=== PATIENT | male | born 1955 | race Caucasian/White ===

== ENCOUNTER → 2019-04-22 10:16 | Outpatient (CLI) | payer MEDICAID ==
[2013-11-13 09:35] VITALS: BMI 30.6
[~2019-04-22 10:16] MED LIST: GLUCOPHAGE500 MG PO; GLUCOTROL ER2.5 MG PO; HYDROCODONE-APA1 TAB PO; NORCO 10/325 TA1 TA1 PO
== END | disposition home or self-care (01) ==
LOC: D.MRI 10:16
PROVIDERS: ATTEND Orthopaedic Surgery
DX: S83.231A Complex tear of medial meniscus, current injury, right knee, initial encounter (principal)

== ENCOUNTER 2019-09-18 06:32 | Day surgery (SDC) | payer MEDICAID ==
[2019-09-17 15:53] LABS: HEMATOCRIT 39.1 % (42.0-54.0); HEMOGLOBIN 13.4 g/dL (13.5-17.5); MCH 30.9 pg (26.0-34.0); MCHC 34.3 g/dL (31.0-37.0); MCV 90.3 fL (80.0-100.0); RBC 4.33 10x6/uL (4.20-6.10); RDW 12.7 % (11.5-14.5); WBC 10.1 10x3/uL (4.8-10.8)
[2019-09-17 16:03] LABS: ANION GAP 13.2 mmol/L (8-16); CALCIUM 9.7 mg/dL (8.5-10.1); CARBON DIOXIDE 29.7 mmol/L (21.0-32.0); CREATININE - SERUM 1.2 mg/dL (0.6-1.3); POTASSIUM - SERUM 4.9 mmol/L (3.5-5.1)
[~2019-09-18] VITALS: Ht 182.9 cm; Wt 99.8 kg
[~2019-09-18 06:32] MED LIST changes: +CRESTOR20 MG PO; +DICLOFENAC SODI50 MG PO; +LEVEMIR FL100 UNIT/1 SC; +LEVEMIR IN100 UNITS/ SC
[2019-09-18 07:21] VITALS: BP 131/69; Ht 182.9 cm; Wt 99.8 kg
[2019-09-18] MEDS ORDERED: HYDROCODON-ACE1 EA10 PO (12:32)
--- NOTE | 2019-09-18 12:42 | NUR ---
BS 133
--- NOTE | 2019-09-18 16:09 | NUR ---
1249 MEDICATED FOR NAUSEA AND SMALL AMT OF EMESIS IN BAG. NO PAIN MED NOTED. 1345 INSTRUCTIONS GIVEN AND IV REMOVED.
--- NOTE | 2019-09-22 09:14 | OP ---
PATIENT NAME: LIZZY GONZALEZ MEDICAL RECORD: [id number] :55 LOCATION:[facility] ADMISSION DATE: SURGEON: YAIR ZEPEDA MD DATE OF OPERATION: 09/18/2019 PREOPERATIVE DIAGNOSIS: Medial meniscus tear of the right knee. POSTOPERATIVE DIAGNOSIS: Medial meniscus tear of the right knee. PROCEDURE: Arthroscopic partial medial meniscectomy. SURGEON: Yair Zepeda MD ANESTHESIA: General. INTRAOPERATIVE COMPLICATIONS: None. SUMMARY OF PATHOLOGIC FINDINGS: The patient had a complex tear of the posterior medial horn of the medial meniscus that required simple debridement. 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 OPERATIVE SUMMARY IN DETAIL: After obtaining appropriate preoperative orthopedic surgery consent as well as anesthetic consultation, evaluation and clearance, the patient was brought to the operating room and placed on the operating table in a supine position. After adequate general laryngeal mask airway was administered, tourniquet was placed about the proximal aspect of the patient's right lower extremity. Right lower extremity was then prepped and draped in routine sterile fashion. Leg was elevated and exsanguinated, tourniquet was inflated to 350 mmHg. A timeout was taken and agreed upon by all given the patient's unique identifiers. At this point, inferolateral portal was established followed by superomedial portal and inferomedial portal. Diagnostic arthroscopy did show the patient to have the complex tear of the posterior horn of the medial meniscus. Combination of meniscotomes as well as a low profile resector were utilized to debride the meniscus back to stable meniscal elements with good retained meniscus. Again, the other above findings were as noted. The knee was insufflated with 30 cc of 0.25% Marcaine with epinephrine and 80 mg of Depo-Medrol. Arthroscopy portals were closed in routine interrupted fashion using 4-0 Prolene. Sterile dressings were applied. The patient was awakened, taken to the recovery room in stable condition. All final needle and sponge counts were correct. 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
== END 2019-09-18 14:15 | disposition home or self-care (01) ==
LOC: D.OPS 06:32 → D.PAN 13:00 → D.OPS 14:15
PROVIDERS: Anesthesiology; ATTEND Orthopaedic Surgery
DX: S83.241A Other tear of medial meniscus, current injury, right knee, initial encounter (principal); X58.XXXA Exposure to other specified factors, initial encounter

== ENCOUNTER → 2019-10-20 09:28 | Outpatient (CLI) | payer MEDICAID ==
[2019-09-18 07:21] VITALS: BMI 29.9
[~2019-10-20 09:28] MED LIST changes: +HYDROCODON-ACE1 EA10 PO
== END | disposition home or self-care (01) ==
LOC: D.MRI 09:28
PROVIDERS: ATTEND Orthopaedic Surgery
DX: M54.16 Radiculopathy, lumbar region (principal)

== ENCOUNTER → 2019-10-31 13:23 | Outpatient (CLI) | payer MEDICAID ==
[2019-09-18 07:21] VITALS: BMI 29.9
== END | disposition home or self-care (01) ==
LOC: D.CT 13:23
PROVIDERS: ATTEND Family Medicine
DX: R07.9 Chest pain, unspecified (principal)

== ENCOUNTER → 2020-06-02 09:42 | Outpatient (CLI) | payer MEDICARE, MEDICAID ==
[2019-09-18 07:21] VITALS: BMI 29.9
== END | disposition home or self-care (01) ==
LOC: D.MRI 09:42
PROVIDERS: ATTEND Clinical Nurse Specialist Family Health
DX: M25.561 Pain in right knee (principal)